=== PATIENT | female | born 1985 | race Caucasian/White ===

== ENCOUNTER 2018-06-09 23:44 | Inpatient (IN) | payer MEDICAID, OTHER ==
[~2018-06-09] VITALS: Ht 165.1 cm; Wt 79.4 kg
[~2018-06-09 23:44] MED LIST: NITR100C6 PO
[2018-06-10] MEDS ORDERED: FERROUS SULF TAB 325MG (00:11)
[2018-06-10] MEDS ORDERED: TRAMADOL HCL TAB 50MG (00:11)
[2018-06-10] MEDS ORDERED: IBUPROFEN 800 MG (00:11)
[2018-06-10] MEDS ORDERED: PRENATAL (00:11)
[2018-06-10 00:44] LABS: BASOPHILS # (AUTO) 0.1 K/uL (0.0-8.0); BASOPHILS % (AUTO) 1.3 % (0.0-2.0); EOSINOPHILS # (AUTO) 0.2 K/uL (0.0-0.7); EOSINOPHILS % (AUTO) 2.9 % (0.0-7.0); HEMATOCRIT 34.4 % (31.2-41.9); HEMOGLOBIN 11.4 g/dL (10.9-14.3); LYMPHOCYTES # (AUTO) 1.5 K/uL (20.0-40.0); LYMPHOCYTES % (AUTO) 18.2 % (20.5-51.5); MEAN CORPUSCULAR HEMOGLOBIN 27.8 uug (24.7-32.8); MEAN CORPUSCULAR HGB CONC 33 g/dL (32.3-35.6); MEAN CORPUSCULAR VOLUME 84.1 fL (75.5-95.3); MONOCYTES # (AUTO) 0.5 K/uL (2.0-10.0); MONOCYTES % (AUTO) 6.3 % (0.0-11.0); NEUTROPHILS # (AUTO) 5.7 K/uL (1.8-8.9); NEUTROPHILS % (AUTO) 71.3 % (38.5-71.5); PLATELET COUNT (AUTO) 275 K/uL (179-408); RED BLOOD CELL COUNT(AUTO) 4.08 MIL/uL (3.63-4.92)
[2018-06-10 00:57] LABS: BILIRUBIN,DIRECT 3.1 mg/dL (0.0-0.2); BILIRUBIN,TOTAL 4.7 mg/dL (0.2-1.0); CREATININE 0.8 mg/dL (0.6-1.3); POTASSIUM 3.9 mmol/L (3.5-5.1); TOTAL PROTEIN, SERUM 7.8 g/dL (6.4-8.2)
[2018-06-10] MEDS ORDERED: MORPHINE SULFATE 2 MG/1 ML DISP.SYRIN IV PRN (01:30)
[2018-06-10] MEDS ORDERED: MAGNESIUM HYDROXIDE 30 ML LIQUID UDC PO PRN (01:30)
[2018-06-10] MEDS ORDERED: ACETAMINOPHEN 325 MG TABLET PO PRN (01:30)
[2018-06-10] MEDS ORDERED: Z GUARD REMEDY PASTE 57 GM TUBE TOP PRN (01:30)
[2018-06-10 02:52] VITALS: BP 102/65
[2018-06-10 03:10] LABS: *URINE HCG, QUAL NEGATIVE (NEGATIVE)
[2018-06-10] MEDS: IV NS 1000 ML 1,000 ML IV PRN ×4 (03:13→22:24)
[2018-06-10] MEDS: ONDANSETRON 4 MG/2 ML VIAL IV PRN ×2 (09:44→22:34)
[2018-06-10 09:57] LABS: BASOPHILS % (AUTO) 0.4 % (0.0-2.0); EOSINOPHILS # (AUTO) 0.2 K/uL (0.0-0.7); EOSINOPHILS % (AUTO) 4.2 % (0.0-7.0); HEMATOCRIT 31.9 % (31.2-41.9); HEMOGLOBIN 10.5 g/dL (10.9-14.3); LYMPHOCYTES # (AUTO) 1.8 K/uL (20.0-40.0); LYMPHOCYTES % (AUTO) 32.1 % (20.5-51.5); MEAN CORPUSCULAR HEMOGLOBIN 27.9 uug (24.7-32.8); MEAN CORPUSCULAR HGB CONC 33 g/dL (32.3-35.6); MEAN CORPUSCULAR VOLUME 84.5 fL (75.5-95.3); MONOCYTES # (AUTO) 0.4 K/uL (2.0-10.0); NEUTROPHILS # (AUTO) 3.1 K/uL (1.8-8.9); NEUTROPHILS % (AUTO) 56.3 % (38.5-71.5); PLATELET COUNT (AUTO) 257 K/uL (179-408); RED BLOOD CELL COUNT(AUTO) 3.77 MIL/uL (3.63-4.92); WHITE BLOOD COUNT (AUTO) 5.5 K/uL (3.8-11.8)
[2018-06-10 10:12] LABS: BILIRUBIN,TOTAL 3.2 mg/dL (0.2-1.0); CREATININE 0.7 mg/dL (0.6-1.3); POTASSIUM 3.7 mmol/L (3.5-5.1); TOTAL PROTEIN, SERUM 7.1 g/dL (6.4-8.2)
[2018-06-10 11:50] VITALS: BP 101/48
[2018-06-10] MEDS ORDERED: IBUP-1957 PO (16:01)
[2018-06-10] MEDS ORDERED: TRAM50TA2 PO (16:02)
[2018-06-10] MEDS ORDERED: PREN1TAB81 PO (16:03)
[2018-06-10 16:15] VITALS: BP 108/48
[2018-06-10 20:23] VITALS: BP 96/56
[2018-06-10] MEDS: DOCUSATE SODIUM 250 MG CAPSULE PO SCH (20:45)
[2018-06-10] MEDS: HYDROMORPHONE 1 MG/1 ML DISP.SYRIN IV PRN (22:27)
[2018-06-11 04:47] VITALS: BP 90/48
[2018-06-11] MEDS: IV NS 1000 ML 1,000 ML IV PRN ×3 (06:22→19:24)
[2018-06-11 06:38] LABS: BASOPHILS % (AUTO) 0.6 % (0.0-2.0); EOSINOPHILS # (AUTO) 0.3 K/uL (0.0-0.7); EOSINOPHILS % (AUTO) 5.3 % (0.0-7.0); HEMATOCRIT 30.8 % (31.2-41.9); HEMOGLOBIN 10.1 g/dL (10.9-14.3); LYMPHOCYTES % (AUTO) 40.7 % (20.5-51.5); MEAN CORPUSCULAR HEMOGLOBIN 28.1 uug (24.7-32.8); MEAN CORPUSCULAR HGB CONC 33 g/dL (32.3-35.6); MEAN CORPUSCULAR VOLUME 85.6 fL (75.5-95.3); MONOCYTES # (AUTO) 0.3 K/uL (2.0-10.0); MONOCYTES % (AUTO) 6.3 % (0.0-11.0); NEUTROPHILS # (AUTO) 2.3 K/uL (1.8-8.9); NEUTROPHILS % (AUTO) 47.1 % (38.5-71.5); PLATELET COUNT (AUTO) 227 K/uL (179-408); WHITE BLOOD COUNT (AUTO) 4.8 K/uL (3.8-11.8)
[2018-06-11 06:51] LABS: CREATININE 0.8 mg/dL (0.6-1.3); MAGNESIUM 1.7 mg/dL (1.8-2.4); PHOSPHOROUS 3.3 mg/dL (2.5-4.9); POTASSIUM 3.8 mmol/L (3.5-5.1)
[2018-06-11] MEDS: ONDANSETRON 4 MG/2 ML VIAL IV PRN (09:28)
[2018-06-11] MEDS: HYDROMORPHONE 1 MG/1 ML DISP.SYRIN IV PRN ×2 (09:30→15:48)
[2018-06-11 10:44] VITALS: BP 105/60
[2018-06-11 15:25] VITALS: BP 104/53
[2018-06-11] MEDS: MAGNESIUM SULFATE/D5W 100 ML IV SCH ×2 (15:48→17:02)
[2018-06-11 18:45] LABS: BILIRUBIN,DIRECT 0.6 mg/dL (0.0-0.2); BILIRUBIN,TOTAL 1.3 mg/dL (0.2-1.0); TOTAL PROTEIN, SERUM 6.3 g/dL (6.4-8.2)
[2018-06-11 19:56] VITALS: BP 107/69
[2018-06-11] MEDS: DOCUSATE SODIUM 250 MG CAPSULE PO SCH (20:10)
[2018-06-11] MEDS: HYDROCODONE/APAP 5-325MG TABLET PO PRN (20:17)
[2018-06-12 04:33] VITALS: BP 100/55
[2018-06-12 05:51] LABS: BASOPHILS % (AUTO) 0.8 % (0.0-2.0); EOSINOPHILS # (AUTO) 0.2 K/uL (0.0-0.7); HEMATOCRIT 31.4 % (31.2-41.9); HEMOGLOBIN 10.4 g/dL (10.9-14.3); LYMPHOCYTES % (AUTO) 39.6 % (20.5-51.5); MEAN CORPUSCULAR HEMOGLOBIN 27.9 uug (24.7-32.8); MEAN CORPUSCULAR HGB CONC 33 g/dL (32.3-35.6); MEAN CORPUSCULAR VOLUME 84.2 fL (75.5-95.3); MONOCYTES # (AUTO) 0.3 K/uL (2.0-10.0); MONOCYTES % (AUTO) 5.7 % (0.0-11.0); NEUTROPHILS # (AUTO) 2.5 K/uL (1.8-8.9); NEUTROPHILS % (AUTO) 49.9 % (38.5-71.5); PLATELET COUNT (AUTO) 224 K/uL (179-408); RED BLOOD CELL COUNT(AUTO) 3.72 MIL/uL (3.63-4.92); WHITE BLOOD COUNT (AUTO) 5.1 K/uL (3.8-11.8)
[2018-06-12 06:09] LABS: BILIRUBIN,TOTAL 1.2 mg/dL (0.2-1.0); CREATININE 0.7 mg/dL (0.6-1.3); MAGNESIUM 1.7 mg/dL (1.8-2.4); POTASSIUM 3.6 mmol/L (3.5-5.1); TOTAL PROTEIN, SERUM 6.9 g/dL (6.4-8.2)
[2018-06-12] MEDS: IV NS 1000 ML 1,000 ML IV PRN (09:17)
[2018-06-12] MEDS: HYDROCODONE/APAP 5-325MG TABLET PO PRN (09:22)
[2018-06-12 11:45] VITALS: BP 92/56
[2018-06-12] MEDS ORDERED: HYDR-3326 PO (12:46)
[2018-06-12] MEDS ORDERED: MAGNESIUM OXIDE 400 MG TABLET PO ONE (13:15)
== END 2018-06-12 13:30 | disposition home or self-care (01) ==
LOC: ER 23:48 → MEDSURG3 06-10 02:14
PROVIDERS: ADMIT Nurse Practitioner Acute Care; ATTEND Nurse Practitioner Acute Care
DX: K81.0 Acute cholecystitis (principal); K85.90 Acute pancreatitis without necrosis or infection, unspecified; R74.8 Abnormal levels of other serum enzymes
CPT/HCPCS: 36415; 74181; 78445; 83690; 83735; 84100; 84703; 85025; A4663; A9537; G0378; J1170; J2270; J2405; J3475; J7030

== ENCOUNTER 2018-08-24 23:06 | Emergency (ER) | payer MEDICAID ==
[~2018-08-24] VITALS: Ht 154.9 cm; Wt 77.1 kg
[~2018-08-24 23:06] MED LIST changes: +HYDR-3326 PO; +IBUP-1957 PO; -NITR100C6 PO; +PREN1TAB81 PO
--- NOTE | 2018-08-25 00:10 | NUR ---
PATIENT C/O DRY COUGH X1 WEEK. DENIES FEVER OR CHILLS.
[2018-08-25] MEDS ORDERED: IPRATROPIUM BROMIDE 0.5 MG/2.5 ML NEBU ONE (00:56)
[2018-08-25] MEDS ORDERED: ALBUTEROL SULFATE 2.5 MG/ 0.5 ML NEBU ONE (00:56)
[2018-08-25] MEDS ORDERED: ALBUTEROL SULFATE 2.5 MG/3 ML NEBU NEB ONE (01:00)
[2018-08-25] MEDS ORDERED: IPRATROPIUM BROMIDE 0.5 MG/2.5 ML NEBU NEB ONE (01:00)
--- NOTE | 2018-08-25 01:15 | NUR ---
Patient discharged to home in stable conditon. Written and verbal after care instructions given. Patient verbalizes understanding of instructions. WALKED OUT OF ER WITH NO DISTRESS NOTED
[2018-08-25 01:16] VITALS: BP 120/75
== END 2018-08-25 01:16 | disposition home or self-care (01) ==
LOC: ER 23:08
DX: J06.9 Acute upper respiratory infection, unspecified (principal); Z79.1 Long term (current) use of non-steroidal anti-inflammatories (NSAID); Z79.899 Other long term (current) drug therapy
CPT/HCPCS: A4663; J3590

== ENCOUNTER 2021-03-24 20:28 | Emergency (ER) | payer MEDICAID ==
[~2021-03-24] VITALS: Ht 165.1 cm; Wt 77.1 kg
--- NOTE | 2021-03-25 00:10 | NUR ---
AFTER BEING TRIAGED PATIENT PLACED BACK IN WAITING ROOM WAITING FOR BED TO OPEN UP IN THE ER.
--- NOTE | 2021-03-25 01:25 | NUR ---
Patient placed in hallway.
[2021-03-25] MEDS ORDERED: BENZ-13 PO ×2 (01:37→01:57)
[2021-03-25] MEDS ORDERED: BENZONATATE 100 MG CAPSULE PO ONE (01:45)
[2021-03-25] MEDS ORDERED: BENZONATATE 100 MG CAPSULE ONE (01:51)
--- NOTE | 2021-03-25 02:06 | NUR ---
Patient discharged to home in stable condition. Written and verbal after care instructions given. Patient verbalizes understanding of instructions. Stressed follow up or return to ER for worsening s/s.
[2021-03-25 02:24] VITALS: BP 130/80
== END 2021-03-25 02:24 | disposition home or self-care (01) ==
LOC: ER 20:30
DX: J02.8 Acute pharyngitis due to other specified organisms (principal); Z20.822 Contact with and (suspected) exposure to COVID-19; Z87.828 Personal history of other (healed) physical injury and trauma; R03.0 Elevated blood-pressure reading, without diagnosis of hypertension
CPT/HCPCS: A4663

== ENCOUNTER 2021-04-25 10:24 | Emergency (ER) | payer MEDICAID ==
[~2021-04-25] VITALS: Ht 165.1 cm; Wt 86.2 kg
[~2021-04-25 10:24] MED LIST changes: +BENZ-13 PO; -HYDR-3326 PO; -IBUP-1957 PO; -PREN1TAB81 PO
[2021-04-25] MEDS ORDERED: LORAZEPAM 0.5 MG TABLET PO ONE (10:45)
[2021-04-25] MEDS ORDERED: LORAZEPAM 0.5 MG TABLET ONE (10:54)
--- NOTE | 2021-04-25 11:15 | NUR ---
Patient was seen by MD. Denies chest pain or airway complaints. No hives or rashes seen. No nausea. States she has "a lot of anxiety problems". Ativan given as ordered. In structed not to drive while on Ativan. DC, Rx (including all precautions) and follow up instructions given and explained to patient who states she understands all instructions
[2021-04-25] MEDS ORDERED: NAPR-1192 PO (11:16)
[2021-04-25] MEDS ORDERED: LORA-258 PO ×2 (11:16→11:17)
[2021-04-25] MEDS ORDERED: NAPROXEN 500 MG TABLET PO ONE (11:30)
[2021-04-25] MEDS ORDERED: NAPROXEN 500 MG TABLET ONE (11:41)
== END 2021-04-25 11:30 | disposition home or self-care (01) ==
LOC: ER 10:32
DX: H02.849 Edema of unspecified eye, unspecified eyelid (principal); M79.605 Pain in left leg; R10.9 Unspecified abdominal pain; F41.9 Anxiety disorder, unspecified
CPT/HCPCS: 93005; A4663

== ENCOUNTER 2021-09-09 14:38 | Emergency (ER) | payer MEDICAID ==
[~2021-09-09] VITALS: Ht 165.1 cm; Wt 81.6 kg
[~2021-09-09 14:38] MED LIST changes: +LORA-258 PO; +NAPR-1192 PO
[2021-09-09] MEDS ORDERED: IBUPROFEN 600 MG TABLET PO ONE (15:15)
[2021-09-09] MEDS ORDERED: IBUPROFEN 600 MG TABLET ONE (15:17)
--- NOTE | 2021-09-09 15:40 | NUR ---
DR TILLMAN AT BEDSIDE FOR EVALUATION. RT FOOT XRAY DONE AT BEDSIDE.
--- NOTE | 2021-09-09 15:42 | NUR ---
MEDICATED FOR PAIN PER MD ORDER.
[2021-09-09 16:00] VITALS: BP 125/80
--- NOTE | 2021-09-09 16:01 | NUR ---
Patient discharged to home in stable condition. Written and verbal after care instructions given. Patient verbalizes understanding of instructions. Stressed follow up or return to ER for worsening s/s. Pt provided crutches and teaching how to use crutches properly per MD order.
== END 2021-09-09 16:32 | disposition home or self-care (01) ==
LOC: ER 14:39
DX: M72.2 Plantar fascial fibromatosis (principal)
CPT/HCPCS: 73630; A4663

== ENCOUNTER 2021-11-17 12:09 | Emergency (ER) | payer MEDICAID ==
[~2021-11-17] VITALS: Ht 165.1 cm; Wt 81.6 kg
--- NOTE | 2021-11-17 13:04 | NUR ---
[email or web address], medical screening exam in progress
--- NOTE | 2021-11-17 13:36 | NUR ---
COVID swab collected and taken to LAB.
[2021-11-17] MEDS ORDERED: AZIT500T2 PO (14:16)
[2021-11-17] MEDS ORDERED: GUAI1TBM19 PO (14:16)
[2021-11-17] MEDS ORDERED: BENZ-13 PO (14:16)
[2021-11-17 14:19] LABS: *URINE HCG, QUAL NEG (NEGATIVE)
--- NOTE | 2021-11-17 14:56 | NUR ---
Patient discharged to home in stable condition with brisk steady gait. Written and verbal after care instructions given to patient. Patient verbalized understanding and compliance of instructions. Stressed follow up with primary doctor or return to ER for worsening s/s. Copies of all the tests' results were given to patient as well.
== END 2021-11-17 14:56 | disposition home or self-care (01) ==
LOC: ER 12:09
DX: J18.9 Pneumonia, unspecified organism (principal); Z20.822 Contact with and (suspected) exposure to COVID-19; R00.0 Tachycardia, unspecified
CPT/HCPCS: 71045; 84703; A4663

== ENCOUNTER 2022-02-10 19:47 | Inpatient (IN) | payer MEDICAID ==
[~2022-02-10] VITALS: Ht 165.1 cm; Wt 81.6 kg
[~2022-02-10 19:47] MED LIST changes: +AZIT500T2 PO; +GUAI1TBM19 PO
[2022-02-10] MEDS ORDERED: MORPHINE SULFATE 4 MG/1 ML DISP.SYRIN IM ONE (21:15)
[2022-02-10] MEDS ORDERED: MORPHINE SULFATE 4 MG/1 ML DISP.SYRIN ONE (21:37)
[2022-02-10 21:46] LABS: *URINE HCG, QUAL NEGATIVE (NEGATIVE)
[2022-02-10 21:52] LABS: HEMATOCRIT 38.4 % (31.2-41.9); MEAN CORPUSCULAR HEMOGLOBIN 32.7 uug (24.7-32.8); MEAN CORPUSCULAR VOLUME 94.3 fL (75.5-95.3); PLATELET COUNT (AUTO) 235 K/uL (179-408)
[2022-02-10] MEDS ORDERED: SWABABLE VALVE TRANSFER SET EA MC ONE (21:52)
[2022-02-10] MEDS ORDERED: IV NORMAL SALINE 250 ML IV ONE (21:52)
[2022-02-10] MEDS ORDERED: IOHEXOL 300MG/ML 100 ML INFUS..BTL ONE (21:52)
[2022-02-10 22:35] LABS: ALANINE AMINOTRANSFERASE 40 U/L (14-59); ALKALINE PHOSPHATASE 71 U/L (50-136); ASPARTATE AMINOTRANSFERASE 24 U/L (15-37); BILIRUBIN,DIRECT 0.2 mg/dL (0.0-0.2); BILIRUBIN,TOTAL 1.4 mg/dL (0.2-1.0); CARBON DIOXIDE 26 mmol/L (21-32); CHLORIDE 100 mmol/L (98-107); CREATININE 0.9 mg/dL (0.6-1.3); GLUCOSE 97 mg/dL (74-106); POTASSIUM 3.6 mmol/L (3.5-5.1); TOTAL PROTEIN, SERUM 7.8 g/dL (6.4-8.2); UREA NITROGEN, BLOOD 4 mg/dL (7-18)
[2022-02-11] MEDS ORDERED: LORAZEPAM 0.5 MG TABLET PO PRN (00:30)
[2022-02-11] MEDS ORDERED: ONDANSETRON 4 MG/2 ML VIAL IV PRN (01:00)
[2022-02-11] MEDS ORDERED: ACETAMINOPHEN 325 MG TABLET PO PRN (01:00)
[2022-02-11] MEDS ORDERED: hydrALAZINE HCL 20 MG/1 ML VIAL IV PRN (01:00)
[2022-02-11] MEDS ORDERED: MORPHINE SULFATE 2 MG/1 ML DISP.SYRIN IV PRN (01:00)
[2022-02-11] MEDS ORDERED: MORPHINE SULFATE 4 MG/1 ML DISP.SYRIN ONE (01:43)
[2022-02-11] MEDS ORDERED: MORPHINE SULFATE 4 MG/1 ML DISP.SYRIN IV ONE (01:45)
[2022-02-11 02:11] LABS: *AMPHETAMINE, URINE NEGATIVE (NEGATIVE); *CANNABINOID, URINE NEGATIVE (NEGATIVE); *COCCAINE, URINE NEGATIVE (NEGATIVE); *OPIATE, URINE NEGATIVE (NEGATIVE); *PHENCYCLIDINE SCREEN,URINE NEGATIVE (NEGATIVE)
[2022-02-11] MEDS ORDERED: HEPARIN SODIUM,PORCINE 5,000 UNITS/ML VIAL SQ SCH (09:00)
[2022-02-11] MEDS: DOCUSATE SODIUM 100 MG CAPSULE PO SCH ×2 (10:48→16:49)
[2022-02-11] MEDS ORDERED: ONDA4TAB11 PO (11:21)
[2022-02-11] MEDS ORDERED: HYDR-3972 PO (11:21)
[2022-02-11] MEDS ORDERED: IV NS 1000 ML 1,000 ML IV PRN (11:30)
[2022-02-11 11:52] LABS: *BILIRUBIN,URIN NEGATIVE (NEGATIVE); *CLARITY,URINE CLEAR (CLEAR); *COLOR,URINE YELLOW (YELLOW); *KETONES,URINE NEGATIVE (NEGATIVE); *UROBILINOGEN,URINE 0.2 E.U./dl (NORMAL); LEUKOCYTE ESTERASE ,URINE TRACE (NEGATIVE); NITRITE, URINE NEGATIVE (NEGATIVE); PH,URINE 5.5 (5.0-8.0); UGLUCOSE NEGATIVE (NEGATIVE)
[2022-02-11 12:01] VITALS: BP 99/62
[2022-02-11 12:04] LABS: *BLOOD, URINE TRACE (NEGATIVE)
[2022-02-11 15:46] LABS: BACTERIA,URINE MODERATE /HPF (NONE SEEN); SQUAMOUS EPITHELIAL CELL,UR FEW /HPF (NONE SEEN); URINE AMORPHOUS URATE MODERATE /HPF
[2022-02-11] MEDS ORDERED: NITR100C11 PO (15:52)
[2022-02-11] MEDS ORDERED: NITROFURANTOIN/NITROFURAN MAC 100 MG CAPSULE PO ONE (16:00)
[2022-02-11 16:06] VITALS: BP 101/59
[2022-02-11] MEDS ORDERED: GADOTERATE MEGLUMINE 10 MMOL/20 ML VIAL IV ONE (18:09)
== END 2022-02-11 18:10 | disposition home or self-care (01) | DRG 347 ==
LOC: ER 19:52 → MEDSURG3 02-11 00:30
PROVIDERS: ADMIT Nurse Practitioner Family; ATTEND Nurse Practitioner Family
DX: M51.35 Other intervertebral disc degeneration, thoracolumbar region (principal); F17.210 Nicotine dependence, cigarettes, uncomplicated; M54.50 Low back pain, unspecified; F41.9 Anxiety disorder, unspecified; N39.0 Urinary tract infection, site not specified; Z20.822 Contact with and (suspected) exposure to COVID-19
CPT/HCPCS: 36415; 71045; 72126; 72158; 83605; 84484; 84703; 85025; 85651; 85730; 86140; 93005; A4663; A9575; G0378; J1644; J2270; J7040; Q9967

== ENCOUNTER 2022-05-22 22:16 | Emergency (ER) | payer MEDICAID ==
[~2022-05-22] VITALS: Ht 165.1 cm; Wt 81.6 kg
[~2022-05-22 22:16] MED LIST changes: -AZIT500T2 PO; -BENZ-13 PO; -GUAI1TBM19 PO; +HYDR-3972 PO; -LORA-258 PO; -NAPR-1192 PO; +NITR100C11 PO; +ONDA4TAB11 PO
--- NOTE | 2022-05-22 22:26 | NUR ---
After being triaged, patient was placed back in the waiting room until bed is available in the ER.
--- NOTE | 2022-05-23 01:00 | NUR ---
Patient was called to have reassess but patient was not present in the waiting room or outside of ER.
--- NOTE | 2022-05-23 02:00 | NUR ---
Patient was called to be placed in room but was not present. PATIENT WAS TRIAGED BUT NOT SEEN BY ERMD.
== END 2022-05-23 02:00 | disposition left against medical advice (07) ==
LOC: ER 22:16
DX: R53.1 Weakness (principal); M54.9 Dorsalgia, unspecified; R39.198 Other difficulties with micturition; Z53.29 Procedure and treatment not carried out because of patient's decision for other reasons
CPT/HCPCS: A4663

== ENCOUNTER 2022-06-05 17:42 | Emergency (ER) | payer MEDICAID ==
[~2022-06-05] VITALS: Ht 165.1 cm; Wt 77.1 kg
[2022-06-05] MEDS ORDERED: OXYCODONE/APAP 5-325 MG TABLET ONE (18:54)
[2022-06-05] MEDS ORDERED: OXYCODONE/APAP 5-325 MG TABLET PO ONE (19:00)
[2022-06-05] MEDS ORDERED: HYDR-3972 PO (20:03)
[2022-06-05] MEDS ORDERED: ALBU6.7H9 INH (20:10)
--- NOTE | 2022-06-05 20:21 | NUR ---
Patient discharged to home in stable condition. Written and verbal after care instructions given. Patient verbalizes understanding of instructions. Stressed follow up or return to ER for worsening s/s. Addendum: 06/05/22 at 2159 by ART Instructed patient not to drive
[2022-06-05 21:59] VITALS: BP 110/66
== END 2022-06-05 20:21 | disposition home or self-care (01) ==
LOC: ER 17:42
DX: J20.8 Acute bronchitis due to other specified organisms (principal); Z20.822 Contact with and (suspected) exposure to COVID-19
CPT/HCPCS: 71045; A4663

== ENCOUNTER 2022-10-27 21:36 | Emergency (ER) | payer MEDICAID ==
[~2022-10-27] VITALS: Ht 165.1 cm; Wt 79.4 kg
[~2022-10-27 21:36] MED LIST changes: +ALBU6.7H9 INH
[2022-10-27] MEDS ORDERED: ONDANSETRON 4 MG/2 ML VIAL ONE (22:12)
[2022-10-27] MEDS ORDERED: ONDANSETRON 4 MG/2 ML VIAL IV ONE (22:15)
[2022-10-27] MEDS ORDERED: IV NORMAL SALINE 1000 ML BAG IV ONE (22:15)
[2022-10-27 22:18] LABS: BASOPHILS % (AUTO) 0.5 % (0.0-2.0); EOSINOPHILS % (AUTO) 0.4 % (0.0-7.0); HEMATOCRIT 39.1 % (31.2-41.9); HEMOGLOBIN 13.6 g/dL (10.9-14.3); LYMPHOCYTES # (AUTO) 2.1 K/uL (0.8-4.8); LYMPHOCYTES % (AUTO) 22.9 % (20.5-51.5); MEAN CORPUSCULAR HEMOGLOBIN 33.7 uug (24.7-32.8); MEAN CORPUSCULAR HGB CONC 35 g/dL (32.3-35.6); MONOCYTES # (AUTO) 0.4 K/uL (0.1-1.30); MONOCYTES % (AUTO) 4.7 % (0.0-11.0); NEUTROPHILS # (AUTO) 6.7 K/uL (1.8-8.9); NEUTROPHILS % (AUTO) 71.5 % (38.5-71.5); PLATELET COUNT (AUTO) 229 K/uL (179-408); RED BLOOD CELL COUNT(AUTO) 4.03 MIL/uL (3.63-4.92); RED CELL DISTRIBUTION WIDTH 13.4 % (12.3-17.7); WHITE BLOOD COUNT (AUTO) 9.3 K/uL (3.8-11.8)
[2022-10-27 22:35] LABS: DIFFERENTIAL COMMENT 1
[2022-10-27 22:39] LABS: CALCIUM 8.9 mg/dL (8.5-10.1); CREATININE 0.8 mg/dL (0.6-1.3); POTASSIUM 3.8 mmol/L (3.5-5.1)
[2022-10-27 22:45] LABS: ALBUMIN 3.8 g/dL (3.4-5.0); BILIRUBIN,DIRECT 0.2 mg/dL (0.0-0.2); TOTAL PROTEIN, SERUM 7.6 g/dL (6.4-8.2)
[2022-10-27] MEDS ORDERED: LOPE2CAP40 PO (22:46)
[2022-10-27] MEDS ORDERED: ONDA4TAB5 PO (22:46)
[2022-10-27] MEDS ORDERED: DICY20TA11 PO (22:46)
[2022-10-27 23:19] VITALS: BP 112/70; O2SAT 98
== END 2022-10-27 23:19 | disposition home or self-care (01) ==
LOC: ER 21:36
DX: R11.2 Nausea with vomiting, unspecified (principal); R19.7 Diarrhea, unspecified; R20.2 Paresthesia of skin; R10.2 Pelvic and perineal pain; Z79.2 Long term (current) use of antibiotics; Z79.899 Other long term (current) drug therapy
CPT/HCPCS: 99283; 96374; 96361; 80076; 80048; 83690; 85025; 84702; 36415; J2405; J7040; A4663

== ENCOUNTER 2024-08-29 19:52 | Emergency (ER) | payer MEDICAID ==
[~2024-08-29] VITALS: Ht 165.1 cm; Wt 81.6 kg
[~2024-08-29 19:52] MED LIST changes: +DICY20TA11 PO; +LOPE2CAP40 PO; +ONDA4TAB5 PO
[2024-08-29] MEDS ORDERED: ONDA4TAB11 PO (20:28)
[2024-08-29] MEDS ORDERED: HYDR-3980 PO (20:28)
[2024-08-29] MEDS ORDERED: CYCL10TA9 PO (20:28)
[2024-08-29 20:36] VITALS: BP 107/75; O2SAT 97
== END 2024-08-29 20:37 | disposition home or self-care (01) ==
LOC: ER 19:55
DX: M54.41 Lumbago with sciatica, right side (principal); R20.2 Paresthesia of skin; F41.9 Anxiety disorder, unspecified; Z86.69 Personal history of other diseases of the nervous system and sense organs; Z87.39 Personal history of other diseases of the musculoskeletal system and connective tissue
CPT/HCPCS: A4606; A4663